=== PATIENT | female | born 1965 | race Caucasian/White ===

== ENCOUNTER 2016-08-04 17:45 | Emergency (ER) | payer OTHER ==
[2016-08-04 17:50] VITALS: BP 131/101; PULSE 77; TEMP 97.8; BMI 24.5
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
[2016-08-04] MEDS ORDERED: diazePAM 2 MG TABLET PO ONE (19:59)
[2016-08-04] MEDS ORDERED: OXYCODONE/APAP 5/325MG COMBO TABLET PO ONE (19:59)
[2016-08-04] MEDS ORDERED: diazePAM 2 MG TABLET ONE (20:08)
[2016-08-04] MEDS ORDERED: OXYCODONE/APAP 5/325MG COMBO TABLET ONE (20:09)
== END 2016-08-04 20:44 | disposition home or self-care (01) ==
LOC: JERFT 17:45
DX: F41.9 Anxiety disorder, unspecified (principal); V49.49XA Driver injured in collision with other motor vehicles in traffic accident, initial encounter; Y92.414 Local residential or business street as the place of occurrence of the external cause; Y93.89 Activity, other specified
CPT/HCPCS: 70450-TC; 72125-TC; 99281-25

== ENCOUNTER 2018-02-05 14:17 | Emergency (ER) | payer OTHER ==
--- NOTE | 2018-02-05 14:25 | PDOC ---
Attending Attestation - Resident Resident Name: Samaria Rosa - ED Attending Attestation I have performed the following: I have examined & evaluated the patient, The case was reviewed & discussed with the resident, I agree w/resident's findings & plan, Exceptions are as noted
[2018-02-05 14:27] VITALS: BP 134/96; PULSE 82; TEMP 98.4; BMI 26.9
[2018-02-05] MEDS ORDERED: KETOROLAC TROMETHAMINE 60 MG/2 ML VIAL IM ONE (15:36)
--- NOTE | 2018-02-05 15:43 | PDOC ---
History of Present Illness - General Chief Complaint: Wound Stated Complaint: ABCESS to perineal area Time Seen by Provider: 02/05/18 15:36 - History of Present Illness Initial Comments: 02/05/18 16:40 Chief complaint: Painful swelling vulvar area right History of present illness: Several days of worsening pain or swelling of the right vulva extending distally. No drainage. Review of systems: Denies fever/chills, trauma, vaginal bleeding or discharge, recent sexual activity, dysuria, frequency, or other urinary tract symptoms Past medical history: Healthy female without relevant medical or surgical problems in the past or present. Social/family history reviewed and noncontributory Physical exam: Alert and oriented well-developed well-nourished no acute distress cheerful and cooperative Afebrile, vital signs normal Inspection and palpation of the perineum and vagina reveals what is probably an infected Bartholin's cyst on the right. The swelling is primarily in the lower labia with extension to the perineum. There is no erythema or warmth, but there is tenderness and induration, without fluctuance. No vaginal discharge. No bleeding. No involvement of the perianal region Impression: Infected Bartholin's cyst Plan: Sitz baths, antibiotics, and analgesics. To see her SMASHER for definitive management. Toradol helpful emergency room. Fully ambulatory and in no significant pain or distress upon discharge to follow-up as directed. Past History - Past Medical History Allergies/Adverse Reactions: Allergies Allergy/AdvReac Type Severity Reaction Status Date / Time No Known Allergies Allergy Verified 02/05/18 14:19 Home Medications: Ambulatory Orders Cephalexin Monohydrate [Keflex] 250 mg PO Q6H #30 capsule 02/05/18 Diclofenac Sodium 75 mg PO BID #14 tablet. 02/05/18 Oxycodone HCl/Acetaminophen [Percocet 10-325 mg Tablet] 1 tab PO Q4HWA PRN #12 tablet MDD 4 02/05/18 COPD: No Other medical history: pt denies - Suicide/Smoking/Psychosocial Hx Smoking History: Never smoked Have you smoked in the past 12 months: No Hx Alcohol Use: Yes (socially) Drug/Substance Use Hx: No Substance Use Type: None *Physical Exam - Vital Signs Last Vital Signs Temp Pulse Resp BP Pulse Ox 98.4 F 82 18 134/96 100 02/05/18 14:20 02/05/18 14:20 02/05/18 14:20 02/05/18 14:20 02/05/18 14:20 *DC/Admit/Observation/Transfer Diagnosis at time of Disposition: Bartholin's gland abscess - Discharge Dispostion Disposition: HOME Condition at time of disposition: Stable Decision to Admit order: No - Prescriptions Prescriptions: Cephalexin Monohydrate [Keflex] 250 mg PO Q6H #30 capsule Diclofenac Sodium 75 mg PO BID #14 tablet. Oxycodone HCl/Acetaminophen [Percocet 10-325 mg Tablet] 1 tab PO Q4HWA PRN #12 tablet MDD 4 PRN Reason: Severe Pain - Referrals - Patient Instructions Printed Discharge Instructions: DI for Bartholin Gland Cyst Additional Instructions: Warm baths, sits baths. Antibiotics and pain killers as needed. See SMASHER physician within the next 4-5 days for definitive treatment, which may require a surgical procedure. Return to ER immediately if there are fever/chills, body aches, or other sign of progressive infection. - Post Discharge Activity Forms/Work/School Notes: Back to Work
[2018-02-05] MEDS ORDERED: KETOROLAC TROMETHAMINE 60 MG/2 ML VIAL ONE (15:49)
== END 2018-02-05 16:05 | disposition home or self-care (01) ==
LOC: FER 14:17
PROC: 3E0233Z Introduction of Anti-inflammatory into Muscle, Percutaneous Approach (ICD-10-PCS; principal; 2018-02-05)
DX: N75.0 Cyst of Bartholin's gland (principal)
CPT/HCPCS: 99282-25

== ENCOUNTER 2018-11-14 05:01 | Day surgery (SDC) | payer OTHER ==
[2018-11-06 15:03] VITALS: BMI 28.4
[2018-11-14] MEDS ORDERED: PROPOFOL 20 ML ONE (07:40)
[2018-11-14] MEDS ORDERED: MIDAZOLAM HCL 2 MG/2 ML SINGLE DOSE VIAL ONE (07:40)
--- NOTE | 2018-11-14 07:41 | HP ---
[facility] - Chief Complaint Chief Complaint: Irregular uterine bleeding History of Present Illness: This patient has a history of irregular uterine bleeding and is admitted to have a hysteroscopy and D/C. History Source: Patient Limitations to Obtaining History: No Limitations - Past Medical History Allergies/Adverse Reactions: Allergies Allergy/AdvReac Type Severity Reaction Status Date / Time No Known Allergies Allergy Verified 02/05/18 14:19 DIRECT[employer]FFIC [employer]ING: No: Alzheimer's, CVA, Dementia, Migraine, Multiple Sclerosis, Peripheral Neuropathy, Parkinson's, Seizure, Syncope, TIA, Vertigo, Other Cardiovascular: No: AFIB, Aneurysm, Aortic Insufficiency, Aortic Stenosis, CAD, CHF, Deep Vein Thrombosis, HTN, Hyperlipdemia, HI, Mitral Insufficiency, Mitral Stenosis, Murmur, Pulmonary Hypertension, Other Pulmonary: No: Asthma, Bronchitis, Cancer, COPD, O2 Dependent, Pneumonia, Previously Intubated, Pulmonary Embolus, Pulmonary Fibrosis, Sleep Apnea, Other Gastrointestinal: No: Ascites, Cancer, Constipation, Crohn's Disease, Diverticulitis, Diverticulosis, Esophageal Varices, Gastritis, GERD, GI Bleed, Hemorrhoids, Hiatal Hernia, Inflamatory Bowel Disease, Irritable Bowel Disease, Pancreatitis, Peptic Ulcer Disease, Ulcerative Colitis, Other Hepatobiliary: No: Cirrhosis, Cholelithiasis, Cholecystitis, Choledocholithiasis , Hepatitis A, Hepatitis B, Hepatitis C, Other Renal/: No: Renal Failure, Renal Inusuff, BPH, Cancer, Hematuria, Hemodialysis , Neurogenic Bladder, Renal Calculi, UTI, Other Reproductive: No: Ectopic , Endometriosis, Fibroids, PID, Polycystic Ovary Syndrome, Postmenopausal, Other ...LMP: 09/25/18 ...: No ...: 0 Heme/Onc: No: Anemia, B12 Deficiency, Bleeding Disorder, Cancer, Current Chemotherapy, Current Radiation Therapy, Hemochromatosis, Hypercoaguable State, Myeloproliferative Synd, Sickle Cell Disease, Sickle Cell Trait, Thrombocytopenia, Other Infectious Disease: No: AIDS, C-Diff, Herpes Zoster, HIV, MRSA, STD's, Tuberculosis, VREF, Other Musculoskeletal: No: Bursitis, Chronic low back pain, Hemiparesis, Hemiplegia, Osteoarthritis, Paraplegia, Other ENT: No: Allergic Rhinitis, Sinusitis, Other Endocrine: No: Jonah's Disease, Bayside's Disease, Diabetes Insipidus, Diabetes Mellitus, Hyperparathyroidism, Hyperthyroidism, Hypothyroidism, Osteopenia, SIADH, Other Dermatology: No: Basal Cell, Cellulitis, Eczema, Melanoma, Psoriasis, Squamous Cell, Other - Current Medications Current Medications: Home Medications Medication Instructions Recorded Cyanocobalamin (Vitamin B-12) 2,500 mcg PO DAILY 11/06/18 [Vitamin B12] Diclofenac Sodium 75 mg PO DAILY 11/06/18 Gabapentin 100 mg PO DAILY 11/06/18 Multivit-Min/Folic Acid/Biotin 1 each PO DAILY 11/06/18 [Hair, Skin & Nails Caplet] Multivitamin [Multiple Vitamins] 1 each PO DAILY 11/06/18 Paroxetine HCl 10 mg PO DAILY 11/06/18 Satellite Physical Exam - Physical Examination Vital Signs: Vital Signs Period Temp Pulse Resp BP Sys/Mooney Pulse Ox Last 24 Hr 98.4 F 77 20 134/80 100 General Appearance: Well Nourished, Well Developed, Alert & Oriented x3 ENT: Clear, No Discharge, No masses Lung: Clear to auscultation Heart: Regular rate & rhythm, Normal S1, Normal S2 Breasts: Soft, Non-Tender, No masses bilaterally Abdomen: Soft, No tenderness, No CVA Extremities: No edema, No tenderness/swelling Pelvic Exam: Within normal limits External Genitalia, Within normal limits Vagina, Within normal limits Cervix, Within normal limits Uterus, Within normal limits [place] [facility]: Intact, Alert, Oriented Satellite Impression/Plan - Impression/Plan Impression: irregular uterine bleeding Operative Procedure: hysteroscopy and D/C Date to be Performed: 11/14/18
[2018-11-14] MEDS ORDERED: LIDOCAINE HCL/PF 2% SDV 5ML VIAL ONE (07:45)
[2018-11-14] MEDS ORDERED: DEXAMETHASONE SOD PHOSPHATE 4 MG/1 ML VIAL ONE (08:10)
[2018-11-14] MEDS ORDERED: KETOROLAC TROMETHAMINE 30 MG/1 ML VIAL ONE (08:21)
[2018-11-14] MEDS ORDERED: ONDANSETRON 4 MG/2 ML VIAL IVPUSH PRN (08:41)
[2018-11-14] MEDS ORDERED: PROMETHAZINE HCL 25 MG/1 ML VIAL IVPUSH PRN (08:41)
[2018-11-14] MEDS ORDERED: oxyCODONE HCL 5 MG TABLET PO PRN (08:41)
[2018-11-14] MEDS ORDERED: LACTATED RINGERS SOLUTION 1,000 ML IV SCH (08:45)
--- NOTE | 2018-11-14 09:34 | OP ---
DATE OF OPERATION: 11/14/2018 PREOPERATIVE DIAGNOSIS: Irregular uterine bleeding. POSTOPERATIVE DIAGNOSIS: Irregular uterine bleeding. OPERATIVE PROCEDURE: Hysteroscopy with dilatation and curettage. ESTIMATED BLOOD LOSS: 5 mL. The patient was brought to the operating room, placed in a supine position, given fractional anesthesia by Dr. Low, placed in the lithotomy position, prepped and draped in usual manner. The patient was examined. Uterus was noted to be normal size; adnexa negative. A speculum was placed into the vagina. The anterior lip of the cervix was grasped with a tenaculum. The uterus was then sounded to approximately 7-8 cm. The cervix was dilated with Casillas dilators. Hysteroscopy was performed. The endometrial cavity looked perfectly normal. The endocervical cavity also looked normal. There were no signs of any polyps. Patient tolerated the procedure well. A D&C was carried out using a medium-size curette. Both a dilatation and curettage were carried out for the endometrium and for the endocervical canal. Tissue was sent to pathology. The tissue was scant in amount. The patient did well, and she was then transferred to the recovery room in good condition. SHIVA CARLOS M.D. [id number]
[2018-11-14 10:05] VITALS: TEMP 97.6
[2018-11-14 12:37] VITALS: BP 118/67; PULSE 72
--- NOTE | 2018-11-18 16:49 | PATH ---
Surgical Pathology Report Patient Name: ROSEMARIE JIN [facility]. Rec. #: [id number] /Age/Gender: 1965 (Age: 53) / F Account: [id number] Location: [facility] SURGICAL Taken: 11/14/2018 Received: 11/14/2018 Reported: 11/18/2018 Physicians: Abel Crow M.D. Specimen(s) Received A: ENDOMETRIAL TISSUE B: ENDOCERVICAL TISSUE Clinical History Irregular menstruation Final Diagnosis A. ENDOMETRIAL TISSUE, DILATION AND CURETTAGE: FRAGMENTS OF WEAKLY PROLIFERATIVE ENDOMETRIUM AND BENIGN CERVICAL TISSUE ADMIXED WITH BLOOD. B. ENDOCERVICAL TISSUE, DILATION AND CURETTAGE: SCANT FRAGMENTS OF BENIGN ENDOCERVICAL TISSUE. Electronically Signed Yas Kaplan M.D. Gross Description A. Received in formalin, labeled "endometrial tissue" is a 1.0 x 0.5 x 0.2 cm aggregate of dark brown tissue. Entirely submitted in one cassette. B. Received in formalin, labeled "endocervical tissue" is a 0.3 x 0.2 x 0.1 cm portion of brown mucoid tissue. Entirely submitted in one cassette. AE/11/18/2018 ebram/11/18/2018
== END 2018-11-14 12:10 | disposition home or self-care (01) ==
LOC: JASU-SURG 05:01
PROVIDERS: ATTEND Obstetrics & Gynecology
PROC: 0UDB7ZX Extraction of Endometrium, Via Natural or Artificial Opening, Diagnostic (ICD-10-PCS; principal; 2018-11-14 08:00)
PROC: 0UJD8ZZ Inspection of Uterus and Cervix, Via Natural or Artificial Opening Endoscopic (ICD-10-PCS; 2018-11-14 08:00)
DX: N93.9 Abnormal uterine and vaginal bleeding, unspecified (principal)
CPT/HCPCS: 36415; 84703; 86850; 86900; 86901; 88305-TC; 94760

== ENCOUNTER 2020-08-16 04:33 | Day surgery (SDC) | payer OTHER ==
[2020-08-11 16:46] VITALS: BMI 28.8
[2020-08-16] MEDS ORDERED: ONDANSETRON 4 MG/2 ML VIAL ONE (10:32)
[2020-08-16] MEDS ORDERED: MIDAZOLAM HCL 2 MG/2 ML SINGLE DOSE VIAL ONE ×2 (10:32→11:23)
[2020-08-16] MEDS ORDERED: LIDOCAINE HCL/PF 2% SDV 5ML VIAL ONE (10:32)
[2020-08-16] MEDS ORDERED: DEXAMETHASONE SOD PHOSPHATE 4 MG/1 ML VIAL ONE (10:32)
[2020-08-16] MEDS ORDERED: PROPOFOL 20 ML ONE ×3 (10:32→11:23)
[2020-08-16] MEDS ORDERED: SUCCINYLCHOLINE CHLORIDE 200 MG/10 ML SYRINGE ONE (11:23)
[2020-08-16] MEDS ORDERED: IBUPROFEN 600 MG TABLET (FP) PO PRN (12:13)
[2020-08-16] MEDS ORDERED: IBUPROFEN 800 MG/8 ML IJ IVPB PRN (12:13)
[2020-08-16] MEDS ORDERED: oxyCODONE HCL 5 MG TABLET PO PRN (12:13)
[2020-08-16] MEDS ORDERED: ONDANSETRON 4 MG/2 ML VIAL IVPUSH PRN (12:13)
[2020-08-16] MEDS ORDERED: ELECTROLYTE-148 SOLN 1,000 ML IV SCH (12:15)
[2020-08-16] MEDS ORDERED: LACTATED RINGERS SOLUTION 1,000 ML IV SCH (13:15)
[2020-08-16 14:16] VITALS: BP 142/81; PULSE 88; TEMP 97.5
== END 2020-08-16 14:22 | disposition home or self-care (01) ==
LOC: JASU-SURG 04:33
PROVIDERS: ATTEND Obstetrics & Gynecology
PROC: 0UDB8ZX Extraction of Endometrium, Via Natural or Artificial Opening Endoscopic, Diagnostic (ICD-10-PCS; 2020-08-16)
PROC: 0UBC8ZX Excision of Cervix, Via Natural or Artificial Opening Endoscopic, Diagnostic (ICD-10-PCS; principal; 2020-08-16 11:00)
PROC: 0UB98ZX Excision of Uterus, Via Natural or Artificial Opening Endoscopic, Diagnostic (ICD-10-PCS; 2020-08-16 11:00)
DX: N84.0 Polyp of corpus uteri (principal); N84.1 Polyp of cervix uteri
CPT/HCPCS: 81025; 88305-TC; 94760